=== PATIENT | male | born 1970 | race Caucasian/White ===

== ENCOUNTER → 2022-11-21 10:20 | Outpatient (BNVA) | payer BC, SELFPAY | PROVIDERS: PCP Family Medicine; Visit Provider Internal Medicine Rheumatology | DX: M10.9 Gout, unspecified (principal); Z79.899 Other long term (current) drug therapy; M19.90 Unspecified osteoarthritis, unspecified site; E11.9 Type 2 diabetes mellitus without complications; M45.6 Ankylosing spondylitis lumbar region; M25.761 Osteophyte, right knee; M25.721 Osteophyte, right elbow; M25.461 Effusion, right knee; M17.12 Unilateral primary osteoarthritis, left knee; M25.422 Effusion, left elbow | CPT/HCPCS: 36415; 72202; 73070; 73130; 73562; 80076; 82565; 83036; 83520; 84550; 85025; 85651; 86140; 86200; 86812 ==

== ENCOUNTER 2023-01-01 13:05 | Outpatient (CLI) | payer BC, SELFPAY ==
--- NOTE | 2023-01-01 13:45 | MR_ITS ---
WS: [id number] MRI LEFT KNEE HISTORY: [id number] - Chronic gout, unspecified, with tophus (tophi) COMPARISON: Radiograph 11/21/2022 Anterior cruciate ligament: Intact. Posterior cruciate ligament: Very thin PCL. PCL is being deformed and displaced by a large lobulated fluid collection surrounding the knee joint. Medial collateral ligament: Marked displacement of the PCL and surrounded by markedly thickened synov ium. There is increased synovium surrounding the PCL greatest at the joint line and above the joint l ine. Posterior lateral corner structures: Displaced posterior lateral corner ligaments. Displacement is by markedly thickened and heterogeneous synovium. Medial menisci: Intrasubstance degeneration. No definite tear. Lateral meniscus: Increased signal in the periphery of the posterior horn. Peripheral tear suspected. Extensor mechanism: Distal quadriceps tendon and patellar tendons are intact. Fluid and soft tissue: Multiple lobulated fluid collection surrounding the knee. There is a large sup rapatellar joint effusion with loose bodies. There are both small loose bodies and conglomerated soft tissue within the joint space. Lobulated cysts are noted posterior to the femoral condyles with smal l loose bodies. Small Izquierdo's cyst with loose bodies. Osseous and articular structures: Patellofemoral compartment: Mild narrowing of the joint. Mild chondromalacia. Medial compartment: Moderate narrowing of the medial compartment. Mild thinning of the cartilage. The re is a full-thickness defect weightbearing surface of the femoral condyle. There is extensive synovi al thickening lateral to the joint line. Lateral compartment: Mild narrowing of the lateral compartment. Extensive synovial thickening along t he lateral joint line. Subchondral cystic disease from the lateral femoral condyle measures 12.7 mm. Osseous erosions greatest involving the lateral femoral condyle and to a lesser extent the medial fem oral condyle. MR/MR knee LT wo con* [id number] IMPRESSION: 1. Large effusions with loose bodies and extensive soft tissue synovial thicke pedrito. Synovial thickening is greatest along the medial and lateral compartments with osseous erosions. With history of gout this could be gout with tophi and synovial thickening. Differential also includes synovial chondromatosis and rhe umatoid arthritis. 2. Informed thin PCL but no full-thickness tear. 3. Medial collateral ligament and the posterior lateral corner structures are being displaced by marked heterogeneous thickening of the synovium. 4. Peripheral tear suspected in the posterior horn lateral meniscus.
== END 2023-01-01 13:06 | disposition home or self-care (01) ==
LOC: RAD 13:14
PROVIDERS: PCP Family Medicine; Visit Provider Internal Medicine Rheumatology
DX: M1A.9XX1 Chronic gout, unspecified, with tophus (tophi) (principal); M19.90 Unspecified osteoarthritis, unspecified site; M25.469 Effusion, unspecified knee
CPT/HCPCS: 73721

== ENCOUNTER → 2023-01-17 10:38 | Outpatient (BNVA) | payer BC, SELFPAY | PROVIDERS: PCP Family Medicine; Visit Provider Internal Medicine Rheumatology | DX: M1A.9XX1 Chronic gout, unspecified, with tophus (tophi) (principal); Z79.899 Other long term (current) drug therapy | CPT/HCPCS: 36415; 84550 ==